=== PATIENT | female | born 1960 | race Caucasian/White ===

== ENCOUNTER 2024-08-29 10:05 | Inpatient (IN) | payer BC, OTHER ==
[~2024-08-29] VITALS: Ht 167.6 cm; Wt 104.3 kg
[~2024-08-29 10:05] MED LIST: CLARITIN-D 241 EACH PO; PROTONIX; ROPIVACAINE/EPI/CLONIDINE/KET 50 ML SYRINGE INJ ONE; ULTRAM 50MG50 MG PO
[2024-08-29] MEDS: CEFAZOLIN SODIUM 2 GM ONE (11:40)
[2024-08-29] MEDS: LACTATED RINGER'S 1,000 ML ONE (11:40)
[2024-08-29] MEDS: CELECOXIB 200 MG CAP ONE (11:41)
[2024-08-29] MEDS: DEXAMETHASONE SOD PHOS 10 MG/1 ML VIAL ONE (11:42)
[2024-08-29] MEDS: GABAPENTIN 300 MG CAP ONE (11:42)
[2024-08-29] MEDS ORDERED: DEXAMETHASONE SOD PHOS 10 MG/1 ML VIAL ONE (12:10)
[2024-08-29] MEDS ORDERED: EPINEPHRINE HCL 1:1000 1ML 1 MG/ML AMP ONE (12:10)
[2024-08-29] MEDS ORDERED: ROPIVACAINE 0.5% 5 MG/ML 30 ML SDV ONE (12:10)
[2024-08-29 12:13] LABS: BASOPHILS # (AUTO) 0.1 (0.0-0.1); BASOPHILS % 0.6 % (0.0-1.0); EOSINOPHILS % 0.2 % (0.0-6.0); HEMATOCRIT 43.3 % (34.2-44.1); HEMOGLOBIN 13.5 g/dL (12.0-16.0); LYMPHOCYTES # (AUTO) 2.5 (1.0-3.2); LYMPHOCYTES % 29.1 % (18.0-39.1); MEAN CORPUSCULAR HEMOGLOBIN 28.7 pg (28-32); MEAN CORPUSCULAR HGB CONC 31.2 g/dL (31-35); MEAN CORPUSCULAR VOLUME 91.9 fL (81-99); MONOCYTES # (AUTO) 0.6 (0.2-0.8); MONOCYTES % 7.1 % (4.4-11.3); NEUTROPHILS # (AUTO) 5.5 (2.1-6.9); NEUTROPHILS % 62.8 % (38.7-80.0); PLATELET COUNT 273 x10e3/uL (140-360); RED BLOOD COUNT 4.71 x10e6/uL (3.6-5.1); RED CELL DISTRIBUTION WIDTH 12.8 % (11.7-14.4)
[2024-08-29] MEDS ORDERED: FENTANYL CITRATE/PF 100MCG/2 ML INJ ONE ×2 (12:34→12:52)
[2024-08-29] MEDS ORDERED: MIDAZOLAM HCL 2 MG/2 ML VIAL ONE (12:34)
[2024-08-29] MEDS ORDERED: SEVOFLURANE INHAL SOLN 250 ML PEN BTL ONE (13:00)
[2024-08-29] MEDS ORDERED: FAMOTIDINE 20 MG/2 ML VIAL IV ONE (13:00)
[2024-08-29] MEDS ORDERED: DEXMEDETOMIDINE HCL 200 MCG/2 ML VIAL ONE (13:00)
[2024-08-29] MEDS ORDERED: PROPOFOL IV EMULSION 10 MG/ML 20 ML VIAL ONE (13:00)
[2024-08-29] MEDS ORDERED: DIPHENHYDRAMINE HCL INJ 50 MG/ML VIAL ONE (13:00)
[2024-08-29] MEDS ORDERED: LIDOCAINE HCL 2% LOCAL INJ 5 ML SDV VIAL INJ ONE (13:00)
[2024-08-29] MEDS ORDERED: ACETAMINOPHEN 1000 MG/100 ML IV ONE (13:00)
[2024-08-29] MEDS ORDERED: Vancomycin IV 500 MG ONE (13:19)
[2024-08-29] MEDS ORDERED: TRANEXAMIC ACID 20 ML ONE (13:19)
[2024-08-29] MEDS ORDERED: SODIUM CHLORIDE 0.9% 500ML 500 ML ONE (13:19)
[2024-08-29] MEDS ORDERED: DOCUSATE SODIUM 100 MG CAP PO PRN (17:00)
[2024-08-29] MEDS ORDERED: ACETAMINOPHEN 650 MG SUPP PR PRN (17:00)
[2024-08-29] MEDS ORDERED: DIPHENHYDRAMINE HCL INJ 50 MG/ML VIAL IV PRN (17:00)
[2024-08-29] MEDS ORDERED: ONDANSETRON HCL INJ 2MG/ML 2ML 2 MG/ML VIAL IV PRN (17:00)
[2024-08-29] MEDS ORDERED: FLUMAZENIL 0.5MG/ 5ML VIAL ONE ×2 (17:32→17:44)
[2024-08-29] MEDS ORDERED: SUGAMMADEX SODIUM 200 MG/2 ML VIAL IV ONE (17:44)
[2024-08-29 19:00] VITALS: BP 133/83; PULSE 88; RESP 16; TEMP 97.3; O2SAT 100
[2024-08-29 19:55] VITALS: PULSE 78; RESP 18; O2SAT 100
[2024-08-29 20:00] VITALS: BP 133/83; PULSE 78; RESP 18; TEMP 97.3; O2SAT 100
[2024-08-29] MEDS: CELECOXIB 200 MG CAP PO SCH (20:00)
[2024-08-29] MEDS: ROPIVACAINE/EPI/CLONIDINE/KET 50 ML SYRINGE INJ ONE (20:05)
[2024-08-29] MEDS: NALOXONE HCL INJ 0.4 MG/ML AMP ONE (20:05)
[2024-08-29] MEDS: SODIUM CHLORIDE 0.9% 1000ML 1,000 ML IV SCH (20:05)
[2024-08-29 23:00] VITALS: BP 140/90; PULSE 77; RESP 18; TEMP 97.2; O2SAT 100
[2024-08-30] VITALS (9 sets, daily range): BP systolic 111–133; BP diastolic 56–71; PULSE 72–92; RESP 17–21; TEMP 97.7–99; O2SAT 95–100
[2024-08-30 05:11] LABS: HEMOGLOBIN 11.8 g/dL (12.0-16.0)
[2024-08-30] MEDS: ASPIRIN 325 MG TAB PO SCH (08:55)
[2024-08-30 11:07] LABS: ANION GAP 14.9 mmol/L (8-16); CREATININE, SERUM 0.75 mg/dL (0.57-1.11); POTASSIUM 4.9 mmol/L (3.5-5.1)
[2024-08-30] MEDS: TRAMADOL HCL 50 MG TAB PO PRN (14:17)
[2024-08-30] MEDS ORDERED: ACETAMINOPHEN 1000 MG/100 ML IV PRN (17:00)
[2024-08-30] MEDS ORDERED: DEXTROSE 50% SYRINGE 50 ML IV PRN ×2 (17:30→17:45)
[2024-08-30] MEDS: METFORMIN HCL 500 MG TAB PO SCH (18:23)
[2024-08-30] MEDS: INSULIN LISPRO 100 UNIT/1 ML 3ML VIAL SQ SCH (20:51)
[2024-08-30] MEDS ORDERED: INSULIN LISPRO 100 UNIT/1 ML 3ML VIAL SQ SCH (21:00)
[2024-08-30] MEDS ORDERED: PROMETHAZINE 12.5MG/ NACL 0.9% 12.5 MG/50 ML BAG IV PRN (21:15)
[2024-08-30] MEDS ORDERED: HYDROCODONE/APAP 5MG-325MG TAB PO PRN (21:15)
[2024-08-30] MEDS: METHOCARBAMOL 750 MG TAB PO PRN (22:21)
[2024-08-30] MEDS: HYDROCODONE/APAP 5MG-325MG TAB PO PRN (22:21)
[2024-08-30] MEDS: ZOLPIDEM TARTRATE 5 MG TAB PO PRN (23:01)
[2024-08-30] MEDS: ZOLPIDEM TARTRATE 5 MG TAB ONE (23:39)
[2024-08-31] VITALS (9 sets, daily range): BP systolic 134–155; BP diastolic 73–83; PULSE 77–97; RESP 16–22; TEMP 98–98.3; O2SAT 96–100
[2024-08-31] MEDS: TRAMADOL HCL 50 MG TAB PO PRN ×2 (04:42→09:41)
[2024-08-31] MEDS ORDERED: METFORMIN HCL 500 MG TAB PO SCH (08:00)
[2024-08-31 08:32] LABS: BASOPHILS % 0.5 % (0.0-1.0); EOSINOPHILS % 0.5 % (0.0-6.0); HEMOGLOBIN 11.5 g/dL (12.0-16.0); LYMPHOCYTES # (AUTO) 1.9 (1.0-3.2); LYMPHOCYTES % 24.1 % (18.0-39.1); MEAN CORPUSCULAR HGB CONC 31.1 g/dL (31-35); MEAN CORPUSCULAR VOLUME 93.4 fL (81-99); MONOCYTES # (AUTO) 0.6 (0.2-0.8); MONOCYTES % 7.6 % (4.4-11.3); NEUTROPHILS # (AUTO) 5.2 (2.1-6.9); NEUTROPHILS % 66.9 % (38.7-80.0); PLATELET COUNT 216 x10e3/uL (140-360); RED BLOOD COUNT 3.96 x10e6/uL (3.6-5.1); WHITE BLOOD COUNT 7.72 x10e3/uL (4.8-10.8)
[2024-08-31 08:55] LABS: ANION GAP 13.8 mmol/L (8-16); CALCIUM 8.3 mg/dL (8.4-10.2); CREATININE, SERUM 0.7 mg/dL (0.57-1.11); POTASSIUM 3.8 mmol/L (3.5-5.1)
[2024-08-31 09:31] LABS: FERRITIN 376.15 ng/mL (4.63-204.00)
[2024-09-01] VITALS (10 sets, daily range): BP systolic 133–152; BP diastolic 70–87; PULSE 82–108; RESP 17–19; TEMP 98.1–98.7; O2SAT 95–98
[2024-09-01 05:29] LABS: BASOPHILS % 0.4 % (0.0-1.0); EOSINOPHILS # (AUTO) 0.1 (0.0-0.4); EOSINOPHILS % 1.8 % (0.0-6.0); HEMATOCRIT 37.5 % (34.2-44.1); HEMOGLOBIN 11.4 g/dL (12.0-16.0); LYMPHOCYTES % 27.4 % (18.0-39.1); MEAN CORPUSCULAR HEMOGLOBIN 28.7 pg (28-32); MEAN CORPUSCULAR HGB CONC 30.4 g/dL (31-35); MEAN CORPUSCULAR VOLUME 94.5 fL (81-99); MONOCYTES # (AUTO) 0.5 (0.2-0.8); NEUTROPHILS # (AUTO) 4.6 (2.1-6.9); PLATELET COUNT 234 x10e3/uL (140-360); RED BLOOD COUNT 3.97 x10e6/uL (3.6-5.1); RED CELL DISTRIBUTION WIDTH 12.6 % (11.7-14.4); WHITE BLOOD COUNT 7.27 x10e3/uL (4.8-10.8)
[2024-09-01 05:49] LABS: ANION GAP 12.6 mmol/L (8-16); CALCIUM 8.6 mg/dL (8.4-10.2); CREATININE, SERUM 0.69 mg/dL (0.57-1.11); POTASSIUM 3.6 mmol/L (3.5-5.1)
[2024-09-02] VITALS (10 sets, daily range): BP systolic 118–151; BP diastolic 65–78; PULSE 81–97; RESP 18–20; TEMP 98.2–99.7; O2SAT 95–98
[2024-09-02 06:13] LABS: BASOPHILS % 0.3 % (0.0-1.0); EOSINOPHILS # (AUTO) 0.2 (0.0-0.4); EOSINOPHILS % 2.5 % (0.0-6.0); HEMOGLOBIN 11.7 g/dL (12.0-16.0); LYMPHOCYTES # (AUTO) 1.9 (1.0-3.2); LYMPHOCYTES % 26.9 % (18.0-39.1); MEAN CORPUSCULAR HEMOGLOBIN 28.9 pg (28-32); MEAN CORPUSCULAR HGB CONC 31.6 g/dL (31-35); MEAN CORPUSCULAR VOLUME 91.4 fL (81-99); MONOCYTES # (AUTO) 0.5 (0.2-0.8); NEUTROPHILS # (AUTO) 4.5 (2.1-6.9); PLATELET COUNT 279 x10e3/uL (140-360); RED BLOOD COUNT 4.05 x10e6/uL (3.6-5.1); RED CELL DISTRIBUTION WIDTH 12.5 % (11.7-14.4); WHITE BLOOD COUNT 7.17 x10e3/uL (4.8-10.8)
[2024-09-02 06:50] LABS: ANION GAP 13.7 mmol/L (8-16); CREATININE, SERUM 0.66 mg/dL (0.57-1.11); POTASSIUM 3.7 mmol/L (3.5-5.1)
[2024-09-02] MEDS ORDERED: ASPIRIN81 MG PO (09:54)
[2024-09-03] VITALS (10 sets, daily range): BP systolic 113–139; BP diastolic 67–80; PULSE 78–98; RESP 16–21; TEMP 98.1–99.3; O2SAT 93–99
[2024-09-04] VITALS (9 sets, daily range): BP systolic 121–142; BP diastolic 64–80; PULSE 72–87; RESP 16–20; TEMP 98–98.7; O2SAT 96–99
[2024-09-04 07:48] LABS: BASOPHILS % 0.6 % (0.0-1.0); EOSINOPHILS # (AUTO) 0.2 (0.0-0.4); EOSINOPHILS % 3.6 % (0.0-6.0); HEMATOCRIT 34.1 % (34.2-44.1); HEMOGLOBIN 10.7 g/dL (12.0-16.0); LYMPHOCYTES # (AUTO) 1.8 (1.0-3.2); LYMPHOCYTES % 28.5 % (18.0-39.1); MEAN CORPUSCULAR HEMOGLOBIN 28.8 pg (28-32); MEAN CORPUSCULAR HGB CONC 31.4 g/dL (31-35); MEAN CORPUSCULAR VOLUME 91.7 fL (81-99); MONOCYTES # (AUTO) 0.5 (0.2-0.8); MONOCYTES % 8.3 % (4.4-11.3); NEUTROPHILS # (AUTO) 3.8 (2.1-6.9); NEUTROPHILS % 58.5 % (38.7-80.0); PLATELET COUNT 277 x10e3/uL (140-360); RED BLOOD COUNT 3.72 x10e6/uL (3.6-5.1); RED CELL DISTRIBUTION WIDTH 12.9 % (11.7-14.4); WHITE BLOOD COUNT 6.42 x10e3/uL (4.8-10.8)
[2024-09-04 07:53] LABS: ANION GAP 11.6 mmol/L (8-16); CALCIUM 8.7 mg/dL (8.4-10.2); CREATININE, SERUM 0.63 mg/dL (0.57-1.11); POTASSIUM 3.6 mmol/L (3.5-5.1)
[2024-09-05] VITALS (9 sets, daily range): BP systolic 116–140; BP diastolic 64–80; PULSE 72–91; RESP 16–20; TEMP 97.8–98.4; O2SAT 96–98
[2024-09-05] MEDS ORDERED: METHOCARBAMOL750 MG PO (15:55)
[2024-09-05] MEDS ORDERED: METFORMIN HCL500 MG PO (15:55)
[2024-09-05] MEDS ORDERED: CELEBREX200 MG PO (15:55)
[2024-09-05] MEDS ORDERED: ASPIRIN325 MG PO (15:55)
[2024-09-05] MEDS ORDERED: LANCETS1 EACH SC (15:55)
[2024-09-05] MEDS ORDERED: TEST STRIP SC (15:55)
[2024-09-05] MEDS ORDERED: BLOOD GLUCOSE1 EAC1 TD (15:55)
[2024-09-06] VITALS: BP 123/70; PULSE 80; RESP 18; TEMP 99; O2SAT 96
[2024-09-06 01:59] VITALS: BP 123/70; PULSE 80; RESP 18; TEMP 99; O2SAT 96
[2024-09-06 04:00] VITALS: BP 124/76; PULSE 76; RESP 18; TEMP 98.2; O2SAT 96
[2024-09-06 07:35] LABS: HEMATOCRIT 37.3 % (34.2-44.1); HEMOGLOBIN 11.5 g/dL (12.0-16.0); LYMPHOCYTES % 24.6 % (18.0-39.1); MEAN CORPUSCULAR HEMOGLOBIN 28.5 pg (28-32); MEAN CORPUSCULAR HGB CONC 30.8 g/dL (31-35); MEAN CORPUSCULAR VOLUME 92.3 fL (81-99); NEUTROPHILS % 62.9 % (38.7-80.0); PLATELET COUNT 289 x10e3/uL (140-360); RED BLOOD COUNT 4.04 x10e6/uL (3.6-5.1); RED CELL DISTRIBUTION WIDTH 12.9 % (11.7-14.4); WHITE BLOOD COUNT 6.86 x10e3/uL (4.8-10.8)
[2024-09-06 07:36] LABS: BASOPHILS # (AUTO) 0.1 (0.0-0.1); BASOPHILS % 0.7 % (0.0-1.0); EOSINOPHILS # (AUTO) 0.2 (0.0-0.4); EOSINOPHILS % 3.5 % (0.0-6.0); LYMPHOCYTES # (AUTO) 1.7 (1.0-3.2); MONOCYTES # (AUTO) 0.5 (0.2-0.8); MONOCYTES % 7.9 % (4.4-11.3); NEUTROPHILS # (AUTO) 4.3 (2.1-6.9)
[2024-09-06 07:59] LABS: CREATININE, SERUM 0.66 mg/dL (0.57-1.11); MAGNESIUM 1.8 MG/DL (1.3-2.1)
[2024-09-06 08:00] VITALS: BP 124/76; PULSE 76; RESP 18; TEMP 98.2; O2SAT 96
[2024-09-06 08:09] VITALS: BP 146/84; PULSE 80; RESP 17; TEMP 98; O2SAT 93
[2024-09-06 08:30] VITALS: PULSE 78; RESP 16; O2SAT 94
== END 2024-09-06 10:40 | disposition home health service (06) | DRG 470 ==
LOC: OR 10:05 → PACU V 16:15 → OBSVTOIN 16:58 → MED/SURG 18:32 → UNDODISIN 08-30 17:27
PROVIDERS: ADMIT Internal Medicine; ATTEND Internal Medicine
PROC: 0QSH04Z Reposition Left Tibia with Internal Fixation Device, Open Approach (ICD-10-PCS; 2024-08-29)
PROC: 0SRD0J9 Replacement of Left Knee Joint with Synthetic Substitute, Cemented, Open Approach (ICD-10-PCS; principal; 2024-08-29 14:54)
DX: S82.132A Displaced fracture of medial condyle of left tibia, initial encounter for closed fracture (principal); D63.8 Anemia in other chronic diseases classified elsewhere; M17.12 Unilateral primary osteoarthritis, left knee; E11.9 Type 2 diabetes mellitus without complications; R53.81 Other malaise; E66.9 Obesity, unspecified; Z68.37 Body mass index [BMI] 37.0-37.9, adult; W01.0XXA Fall on same level from slipping, tripping and stumbling without subsequent striking against object, initial encounter; Y92.524 Gas station as the place of occurrence of the external cause; Y99.0 Civilian activity done for income or pay; Z79.84 Long term (current) use of oral hypoglycemic drugs; Z90.49 Acquired absence of other specified parts of digestive tract; Z88.0 Allergy status to penicillin; Z88.8 Allergy status to other drugs, medicaments and biological substances
CPT/HCPCS: 36415; 80048; 82607; 82728; 82948; 83036; 83540; 83735; 84466; 85014; 85018; 85025; 86850; 86900; 93005; 94799; 99252; C1713; C1776; J0171; J0690; J1100; J1200; J2003; J2250; J2310; J2795; J3370; J7030; J7040

== ENCOUNTER → 2024-11-15 | Outpatient (RCR) | payer OTHER ==
[~2024-11-15] MED LIST changes: +ASPIRIN325 MG PO; +ASPIRIN81 MG PO; +BLOOD GLUCOSE1 EAC1 TD; +CELEBREX200 MG PO; +LANCETS1 EACH SC; +METFORMIN HCL500 MG PO; +METHOCARBAMOL750 MG PO; -ROPIVACAINE/EPI/CLONIDINE/KET 50 ML SYRINGE INJ ONE; +TEST STRIP SC
== END ==
LOC: PT 10-27 14:05
PROVIDERS: ATTEND Physician Assistant
DX: Z47.1 Aftercare following joint replacement surgery (principal); Z96.652 Presence of left artificial knee joint; S82.142D Displaced bicondylar fracture of left tibia, subsequent encounter for closed fracture with routine healing; M62.81 Muscle weakness (generalized)

== ENCOUNTER → 2024-12-16 | Outpatient (RCR) | payer OTHER | LOC: PT 11-17 14:14 | PROVIDERS: ATTEND Physician Assistant | DX: Z47.1 Aftercare following joint replacement surgery (principal); Z96.652 Presence of left artificial knee joint; S82.142D Displaced bicondylar fracture of left tibia, subsequent encounter for closed fracture with routine healing; M62.81 Muscle weakness (generalized) ==

== ENCOUNTER 2025-01-12 17:00 | Outpatient (RCR) | payer OTHER | END 2025-01-13 | LOC: PT 17:00 | PROVIDERS: ATTEND Physician Assistant | DX: Z47.1 Aftercare following joint replacement surgery (principal); Z96.652 Presence of left artificial knee joint; S82.142D Displaced bicondylar fracture of left tibia, subsequent encounter for closed fracture with routine healing; M62.81 Muscle weakness (generalized) ==

== ENCOUNTER 2025-01-26 17:00 | Outpatient (RCR) | payer OTHER | END 2025-02-13 | LOC: PT 17:00 | PROVIDERS: ATTEND Physician Assistant | DX: Z47.1 Aftercare following joint replacement surgery (principal); Z96.652 Presence of left artificial knee joint; S82.142D Displaced bicondylar fracture of left tibia, subsequent encounter for closed fracture with routine healing; M62.81 Muscle weakness (generalized) ==